=== PATIENT | male | born 1980 | race African-American/Black ===

== ENCOUNTER 2023-12-12 13:03 | Outpatient (AMB) | payer SELFPAY ==
--- NOTE | 2023-12-12 13:18 | A.OFFVIS_ITS ---
Intake VS Expanded 12/12/23 13:20 12/12/23 14:16 Height 5 ft 4 in 5 ft 4 in Weight 247 lb 12.793 oz 248 lb BMI 42.5 42.6 Intake Visit Reasons: Obesity, DM/CONFIRMED HPI Nutrition Presentation Details Pt presents for MNT for obesity, T2DM , HTN, Pt was referred by Jomar Samaniego, from [facility] Pt reports living with fam members and everyone takes turns in preparing meals but then reports that the majority of the time he eats Lunch meals at his place of work, in a [place] [facility] [place], and afterwards stops at fast food places. Reports lowest wt at 205 lbs in 2015 and highest wt at 250 lbs - recently Reports meals may consist of Tea 11am spaghetti, meat sauce, root beer snacks on chips 6pm: steak and broccoli, salad, hanna tempo at 99 soda 11 pm bedtime fruits: 0/d fish: not including intake vegetables: daily sodas daily 2, 16oz etoh: denies smoking : denies JRS-Epyyzhb-Lk.Jeor Equation Height 5 ft 4 in Weight 248 lb Resting Metabolic Rate 1923.38 Calculated Activity Level Sedentary Calories Needed to Maintain Weight 2308.06 Diagnosis Nutrition problem #1 excessive energy intake As related to (etiology) #1 diagnosis (T2DM, BMI 42.5 (11/2023), HTN) As evidenced by (sign/symptom) #1 high BMI (consumption of > 30 carb from beverages in a day) Monitoring/Goals0 Nutrition problem monitoring level of knowledge/skill, weight and oral fluids Nutrition goal/outcome wt loss 5lbs in 2 months Outcome progress verbalized understanding Learning/Education Readiness to learn good Stages of change contemplation Educational materials provided Yes (low sugar beverage option, lower av options for dinner) Follow up Follow-up frequency monthly Time Outcome assessment time 30 minutes Most Recent Diabetes Results: No Data to Display Assessment & Plan Assessment & Plan (1) T2DM (type 2 diabetes mellitus): Code(s): E11.9 - Type 2 diabetes mellitus without complications Plan: Wt: 113 Kg ( 11/2023 ) Est kcal needs as per MSJ: 2300 (40% carb, 30% protein/fat) Est fluid needs as per 30 ml/d: 3400 Est prot per day as per 1 g/kg bw: 113 Recommend fiber intake : 8-10 g per day and gradually increase to 25-28 g per day for women and 35-38 g for men or as tolerated Recommend sodium intake per day: less than 2000 mg Educated patient on: ( R = reviewed V = verbalizes understanding N/R = needs review N/A = not applicable * Food sources of carbohydrate, adequate serving sizes and its role in various health conditions: R * reduction of sugars : R * Differences between complex carbohydrates a simple carbohydrates, role of fiber in diet: N/R * Lean protein sources of foods: R * Differences between types of fats and role in diet (mono on saturated fat fatty acids, saturated fatty acids, trans fats): N/R * Food sources of sodium in salt and healthy modifications for heart health in kidney health: N/R * Vitamins and minerals: N/R * Healthy plate method concept: N/R * Physical activity: Benefits a precaution: R * Hypoglycemia protocol (rule of 15): N/R * Dietary prevention of Hyperglycemia: R Patient Instructions: Reduce on sugars in beverages by having water, water with flavor, dluting juices with water, in place of sodas - see list of additional foods Have a meal replacement after dinner, choose lower calorie options see list of lower calorie options l) Work on increasing physical activity(walking ,stairs ) Coding Level of Care Code Nutr Indiv Intake (33108) Diagnoses T2DM (type 2 diabetes mellitus) E11.9 Time Spent (min) 30
[2023-12-12 13:20] VITALS: BMI 42.5
[2023-12-12 14:16] VITALS: BMI 42.6
== END 2023-12-12 14:00 | disposition home or self-care (01) ==
PROVIDERS: PCP Internal Medicine Critical Care Medicine; Visit Provider Dietitian, Registered
DX: E11.9 Type 2 diabetes mellitus without complications (principal)

== ENCOUNTER → 2023-12-12 13:03 | Outpatient (BNVA) | payer OTHER, SELFPAY | PROVIDERS: PCP Internal Medicine Critical Care Medicine; Visit Provider Dietitian, Registered | DX: E11.9 Type 2 diabetes mellitus without complications (principal); Z71.3 Dietary counseling and surveillance | CPT/HCPCS: 97802 ==

== ENCOUNTER 2024-01-10 13:08 | Outpatient (AMB) | payer OTHER, MEDICAID, SELFPAY ==
--- NOTE | 2024-01-10 13:26 | A.OFFVIS_ITS ---
Intake VS Expanded 01/10/24 13:27 Height 5 ft 4 in Weight 235 lb 3.732 oz BMI 40.4 Intake Visit Reasons: T2DM, obesity, HTN/LVM HPI Nutrition Presentation Details Pt presents for MNT for T2DM, HTN, Obesity. Diet modifications reports: switching to low sugar beverages including 2 fruits a day replacing pastries/donuts physical activity :non additional to dally life activities Pt reports doing well, feeling well, motivated Pt denies vomiting, diarrhea or constipation Most Recent Diabetes Results: No Data to Display Assessment & Plan Assessment & Plan (1) T2DM (type 2 diabetes mellitus): Code(s): E11.9 - Type 2 diabetes mellitus without complications Plan: Wt: 113 Kg ( 11/2023 ), 106.8 kg (12/2023)- lost 13 lbs in 1 month at a rate of 3.4 lbs per week Est kcal needs as per MSJ: 2300 (40% carb, 30% protein/fat) Est fluid needs as per 30 ml/d: 3400 Est prot per day as per 1 g/kg bw: 107 Recommend fiber intake : 8-10 g per day and gradually increase to 25-28 g per day for women and 35-38 g for men or as tolerated Recommend sodium intake per day: less than 2000 mg Educated patient on: ( R = reviewed V = verbalizes understanding N/R = needs review N/A = not applicable * Food sources of carbohydrate, adequate serving sizes and its role in various health conditions: R * reduction of sugars : R * Differences between complex carbohydrates a simple carbohydrates, role of fiber in diet: R * Lean protein sources of foods: R * Differences between types of fats and role in diet (mono on saturated fat fatty acids, saturated fatty acids, trans fats): N/R * Food sources of sodium in salt and healthy modifications for heart health in kidney health: R * Vitamins and minerals: N/R * Healthy plate method concept: R * Physical activity: Benefits a precaution: R, V * Hypoglycemia protocol (rule of 15): N/R * Dietary prevention of Hyperglycemia: R Patient Instructions: Reduce on chips /salted snacks try having a boiled egg seasoned with pepper instead of salt walk daily 30 minutes or as tolerated slow down weight loss to 5 lbs less by next follow up Coding Level of Care Code Nutr Indiv Subseq (13445) Diagnoses T2DM (type 2 diabetes mellitus) E11.9 Time Spent (min) 30
[2024-01-10 13:27] VITALS: BMI 40.4
== END 2024-01-10 13:59 | disposition home or self-care (01) ==
PROVIDERS: PCP Internal Medicine Critical Care Medicine; Visit Provider Dietitian, Registered
DX: E11.9 Type 2 diabetes mellitus without complications (principal)

== ENCOUNTER → 2024-01-10 13:08 | Outpatient (BNVA) | payer OTHER, SELFPAY | PROVIDERS: PCP Internal Medicine Critical Care Medicine; Visit Provider Dietitian, Registered | DX: E11.9 Type 2 diabetes mellitus without complications (principal); I10 Essential (primary) hypertension; E66.9 Obesity, unspecified; Z68.41 Body mass index [BMI] 40.0-44.9, adult; Z71.3 Dietary counseling and surveillance | CPT/HCPCS: 97803 ==

== ENCOUNTER 2024-02-25 13:36 | Outpatient (AMB) | payer OTHER, MEDICAID, SELFPAY ==
[2024-02-25 13:40] VITALS: BMI 41.2
--- NOTE | 2024-02-25 13:40 | A.OFFVIS_ITS ---
Intake VS Expanded 02/25/24 13:40 Height 5 ft 4 in Weight 240 lb 1.334 oz BMI 41.2 Intake Visit Reasons: T2DM/Obesity HPI Nutrition Presentation Details Pt presents for MNT f/u for T2DM and obesity. Pt reports doing well, has not started exercise routine, may walk 1 x/day for 1 hour Breakfast cereal raisin bran , whole milk Lunch: sandwich or burger /fries, diet coke snack: chips , cookies, diet soda dinner 7-8 pm : rice/rodriguez chicken , diet coke or gatorade fried foods 4x/wk pastries and the like :d aily dm meds: metformin xr 500 mg/d pravastatin 40 mg/d amlodipine 5mg/d Most Recent Diabetes Results: No Data to Display Assessment & Plan Assessment & Plan (1) T2DM (type 2 diabetes mellitus): Code(s): E11.9 - Type 2 diabetes mellitus without complications Plan: Wt: 113 Kg ( 11/2023 ), 106.8 kg (12/2023)- lost 13 lbs in 1 month at a rate of 3.4 lbs per week, wt 109 kg (01/2024) Est kcal needs as per MSJ: 2300 (40% carb, 30% protein/fat) Est fluid needs as per 30 ml/d: 3400 Est prot per day as per 1 g/kg bw: 107 Recommend fiber intake : 8-10 g per day and gradually increase to 25-28 g per day for women and 35-38 g for men or as tolerated Recommend sodium intake per day: less than 2000 mg Educated patient on: ( R = reviewed V = verbalizes understanding N/R = needs review N/A = not applicable * Food sources of carbohydrate, adequate serving sizes and its role in various health conditions: R * reduction of sugars : R * Differences between complex carbohydrates a simple carbohydrates, role of fiber in diet: R * Lean protein sources of foods: R * Differences between types of fats and role in diet (mono on saturated fat fatty acids, saturated fatty acids, trans fats): N/R * Food sources of sodium in salt and healthy modifications for heart health in kidney health: R * Vitamins and minerals: N/R * Healthy plate method concept: R * Physical activity: Benefits a precaution: R, V * Hypoglycemia protocol (rule of 15): N/R * Dietary prevention of Hyperglycemia: R Patient Instructions: Choose low sugar cereals (cheerios or bran flakes instead of raisin bran) HAve a salad with eggs or chicken after work 3 times a week Choose low sugar beverages, with no sodium Coding Level of Care Code Nutr Indiv Subseq (48451) Diagnoses T2DM (type 2 diabetes mellitus) E11.9 Time Spent (min) 30
== END 2024-02-25 14:17 | disposition home or self-care (01) ==
PROVIDERS: PCP Internal Medicine Critical Care Medicine; Visit Provider Dietitian, Registered
DX: E11.9 Type 2 diabetes mellitus without complications (principal)

== ENCOUNTER → 2024-02-25 13:36 | Outpatient (BNVA) | payer OTHER, MEDICAID, SELFPAY | PROVIDERS: PCP Internal Medicine Critical Care Medicine; Visit Provider Dietitian, Registered | DX: E11.9 Type 2 diabetes mellitus without complications (principal); E66.9 Obesity, unspecified; Z68.41 Body mass index [BMI] 40.0-44.9, adult; Z71.3 Dietary counseling and surveillance | CPT/HCPCS: 97803 ==

== ENCOUNTER 2024-08-06 11:44 | Outpatient (AMB) | payer OTHER, MEDICAID, SELFPAY ==
[2024-08-06 11:48] VITALS: BMI 40.3
--- NOTE | 2024-08-06 11:48 | A.OFFVIS_ITS ---
VS Expanded 08/06/24 11:48 Height 5 ft 4 in Weight 234 lb 9.149 oz BMI 40.3 Intake Visit Reasons: T2DM,OBESITY/LVM Nutrition Presentation Details: Pt presents for MNT f/u for T2DM Pt on 500 mg metformin and working n weight loss. Pt does not monitor bg , working on diet management Pt reports keeping hydrated by having water, diet soda, reducing on sugary beverages working on having fruits more often in place of pastries Physical activity: at work fried foods: 3-4 times a week vegetables: 2 x/wk BS Monitoring Most Recent Diabetes Results: No Data to Display Assessment & Plan Assessment & Plan (1) T2DM (type 2 diabetes mellitus): Code(s): E11.9 - Type 2 diabetes mellitus without complications Category: Medical Plan: Wt: 113 Kg ( 11/2023 ), 106.8 kg (12/2023)- lost 13 lbs in 1 month at a rate of 3.4 lbs per week, wt 109 kg (01/2024), 107 kg (08/21) Est kcal needs as per MSJ: 2300 (40% carb, 30% protein/fat) Est fluid needs as per 30 ml/d: 3400 Est prot per day as per 1 g/kg bw: 107 Recommend fiber intake : 8-10 g per day and gradually increase to 25-28 g per day for women and 35-38 g for men or as tolerated Recommend sodium intake per day: less than 2000 mg Educated patient on: ( R = reviewed V = verbalizes understanding N/R = needs review N/A = not applicable * Food sources of carbohydrate, adequate serving sizes and its role in various health conditions: R * reduction of sugars : R * Differences between complex carbohydrates a simple carbohydrates, role of fiber in diet: R * Lean protein sources of foods: R * Differences between types of fats and role in diet (mono on saturated fat fatty acids, saturated fatty acids, trans fats): R * Food sources of sodium in salt and healthy modifications for heart health in kidney health: R * Vitamins and minerals: N/R * Healthy plate method concept: R * Physical activity: Benefits a precaution: R, V * Hypoglycemia protocol (rule of 15): N/R * Dietary prevention of Hyperglycemia: R Patient Instructions: Continue working on havig a fruit in place of pastries/cookies and similar- have 3-4 fruits /day Increase physical activity (walking, stairs, swimming) goal 30 minutes per day Try carrots, cucumbers, peapods as snack Coding Level of Care Code Nutr Indiv Subseq (40027) Diagnoses T2DM (type 2 diabetes mellitus) E11.9 Time Spent (min) 20
== END 2024-08-06 12:10 | disposition home or self-care (01) ==
PROVIDERS: PCP Internal Medicine Critical Care Medicine; Visit Provider Dietitian, Registered
DX: E11.9 Type 2 diabetes mellitus without complications (principal)

== ENCOUNTER → 2024-08-06 11:44 | Outpatient (BNVA) | payer OTHER, MEDICAID, SELFPAY | PROVIDERS: PCP Internal Medicine Critical Care Medicine; Visit Provider Dietitian, Registered | DX: E11.9 Type 2 diabetes mellitus without complications (principal); Z79.84 Long term (current) use of oral hypoglycemic drugs; Z71.3 Dietary counseling and surveillance | CPT/HCPCS: 97803 ==